=== PATIENT | male | born 1960 | race Caucasian/White ===

== ENCOUNTER 2016-07-14 21:27 | Emergency (ER) | payer SELFPAY ==
[~2016-07-14] VITALS: Ht 180.3 cm; Wt 92.1 kg
[2016-07-14 21:27] VITALS: BP 136/73; PULSE 76; RESP 20; TEMP 98.1; O2SAT 97
[2016-07-14 23:45] VITALS: BP 128/67; PULSE 74; RESP 20; TEMP 98.1; O2SAT 97
== END 2016-07-14 23:45 | disposition left against medical advice (07) ==
LOC: SED 21:27
DX: R53.1 Weakness (principal); Z53.21 Procedure and treatment not carried out due to patient leaving prior to being seen by health care provider